=== PATIENT | female | born 1990 | race American Indian/Alaskan Native ===

== ENCOUNTER 2017-10-09 13:58 | Emergency (ER) | payer OTHER ==
[2017-10-09 14:22] VITALS: BMI 48.2
[2017-10-09] MEDS ORDERED: Oxycodone/Acetaminophen 5/325 mg Tab PO STA (15:02)
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
[2017-10-09 17:03] VITALS: BP 107/53; PULSE 72; RESP 18; TEMP 98; O2SAT 98
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
== END 2017-10-09 17:00 | disposition home or self-care (01) ==
LOC: ED 13:58
DX: S39.012A Strain of muscle, fascia and tendon of lower back, initial encounter (principal); V49.40XA Driver injured in collision with unspecified motor vehicles in traffic accident, initial encounter; Y92.410 Unspecified street and highway as the place of occurrence of the external cause
CPT/HCPCS: 72070; 72100; 96372; 99285; J1885